=== PATIENT | female | born 1975 | race Caucasian/White ===

== ENCOUNTER 2025-01-28 23:11 | Emergency (ER) | payer MEDICAID ==
[~2025-01-28] VITALS: Ht 157.5 cm; Wt 98.0 kg
[2025-01-28 23:27] VITALS: O2SAT 99
[2025-01-29 01:35] LABS: BASOPHILS % 0.3 % (0.0-2.0); EOSINOPHILS % 0.9 % (0.0-5.0); HEMATOCRIT. 32.2 % (36.0-48.0); HEMOGLOBIN. 10.8 g/dL (12.0-16.0); LYMPHOCYTES % 43.1 % (20.0-50.0); MEAN CORPUSCULAR HEMOGLOBIN 30.8 pg (28.0-32.0); MEAN CORPUSCULAR HGB CONC 33.4 g/dL (31.0-37.0); MEAN CORPUSCULAR VOLUME 92.1 fL (81.0-99.0); MEAN PLATELET VOLUME 7.4 fl (7.4-10.4); MONOCYTES % 8.7 % (2.0-8.0); PLATELET 420 x1000/uL (130-400); RED CELL DISTRIBUTION WIDTH 14.5 % (11.6-14.6); WHITE BLOOD COUNT 5.3 x1000/uL (4.5-11.0)
[2025-01-29 01:43] LABS: CHLORIDE 107 mEq/L (98-107); POTASSIUM 3.4 mEq/L (3.5-5.1); SODIUM 142 mEq/L (136-145)
[2025-01-29 01:44] LABS: CARBON DIOXIDE 24 mEq/L (21-32)
[2025-01-29 01:45] LABS: CALCIUM 9.4 mg/dL (8.7-10.4)
[2025-01-29 01:49] LABS: CREATININE 0.6 mg/dL (0.6-1.0); GLUCOSE 101 mg/dL (70-105)
[2025-01-29 01:50] LABS: UREA NITROGEN BLOOD 27 mg/dL (9-23)
[2025-01-29 01:51] LABS: ACETAMINOPHEN < 2 ug/mL (10-30)
[2025-01-29 01:54] LABS: ETHANOL BLOOD < 10 mg/dL (<10)
[2025-01-29 03:04] LABS: CLARITY URINE CLOUDY (CLEAR); COLOR URINE DARK YELLOW (YELLOW); GLUCOSE URINE NEGATIVE (NEGATIVE); KETONES URINE TRACE (NEGATIVE); LEUKOCYTE ESTERASE URINE TRACE (NEGATIVE); NITRITE URINE POSITIVE (NEGATIVE); OCCULT BLOOD URINE NEGATIVE (NEGATIVE); PROTEIN URINE TRACE (NEGATIVE)
[2025-01-29] MEDS: TRAZODONE HCL 50MG TABLET PO ONE (03:08)
[2025-01-29] MEDS: NITROFURANTOIN 100MG M/M CAPSULE PO NR (03:16)
[2025-01-29 04:19] LABS: *AMPHETAMINES SCREEN URINE PRESUMPTIVE POSITIVE (NEGATIVE); *BARBITURATES SCREEN URINE NEGATIVE (NEGATIVE); *BENZODIAZEPINES SCREEN URINE NEGATIVE (NEGATIVE); *COCAINE SCREEN URINE NEGATIVE (NEGATIVE); METHADONE URINE SCREEN NEGATIVE (NEGATIVE); OPIATES URINE SCREEN NEGATIVE (NEGATIVE); PHENCYCLIDINE URINE SCREEN NEGATIVE (NEGATIVE)
[2025-01-29 04:20] LABS: CANNABINOID URINE SCREEN NEGATIVE (NEGATIVE); ECSTASY MDMA SCREEN URINE CONF.TEST INDICATED (NEGATIVE)
[2025-01-29 06:10] LABS: SQUAMOUS EPITHELIAL CELL URINE 1+ /lpf (RARE/1+)
[2025-01-29 06:11] LABS: WBC URINE 15-25 /hpf (0-2)
[2025-01-29 06:12] LABS: RBC URINE 0-2 /hpf (0-2)
[2025-01-29 06:13] LABS: BACTERIA URINE 3+
[2025-01-29] MEDS: NITROFURANTOIN 100MG M/M CAPSULE PO SCH (09:58)
[2025-01-29 11:44] LABS: HCG SCREEN NEGATIVE
[2025-01-29 13:04] VITALS: BP 97/58; PULSE 88; RESP 16; TEMP 36.9; O2SAT 100
== END 2025-01-29 16:54 ==
LOC: ER 23:11
DX: R45.851 Suicidal ideations (principal); N39.0 Urinary tract infection, site not specified; F41.9 Anxiety disorder, unspecified; Z20.822 Contact with and (suspected) exposure to COVID-19
CPT/HCPCS: 36415; 80048; 80305; 80307; 80320; 80329; 81003; 81025; 84703; 85025; 87077; 87186; 87426; 99285; G0480